=== PATIENT | male | born 1975 | race Caucasian/White ===

== ENCOUNTER 2023-05-24 22:30 | Inpatient (IN) | payer OTHER, SELFPAY ==
[2023-05-24 22:31] VITALS: BP 127/65; PULSE 93; RESP 18; TEMP 36.4; O2SAT 96; BMI 23.4
[2023-05-24 22:51] LABS: MANUAL DIFF FLAG NO
[2023-05-24 22:52] LABS: Basophils Percent Auto 0.6 % (0-2); Eosinophils Absolute Auto 0.3 X10*3/uL (0.0-0.4); Eosinophils Percent Auto 3.8 % (0-4); Hematocrit 43.9 % (42.0-52.0); Hemoglobin 15.1 g/dl (14.0-18.0); Imm Gran Abs Auto 0.03 X10*3/uL (0.00-0.03); Imm Gran Pct Auto 0.5 % (0.0-0.4); Lymphocytes Absolute Auto 2.2 X10*3/uL (1.2-4.9); Lymphocytes Percent Auto 33.3 % (20-40); Mean Corpuscular HGB Conc 34.4 g/dl (31.0-36.0); Mean Corpuscular Hemoglobin 32.5 pg (27.0-33.0); Mean Corpuscular Volume 94.4 fL (80.0-98.0); Mean Platelet Volume 8.8 fL (9.4-12.4); Monocytes Absolute Auto 0.2 X10*3/uL (0.1-1.2); Monocytes Percent Auto 3.6 % (2-11); Neutrophils Absolute Auto 3.9 x10*3/uL (2.0-8.3); Neutrophils Percent Auto 58.2 % (45-73); Platelet Count 302 X10*3/uL (160-400); Red Blood Count 4.65 X10*6/uL (4.60-5.80); Red Cell Distribution Width 12.6 % (11.0-16.0); White Blood Count 6.6 X10*3/uL (4.8-10.8)
[2023-05-24 23:06] LABS: Alanine Aminotransferase 36 U/L (0-40); Albumin Level 3.7 g/dL (3.5-5.0); Alkaline Phosphatase 65 U/L (39-117); Anion Gap 15 (12-20); Aspartate Amino Transferase 29 U/L (5-37); Bilirubin Total 0.2 mg/dL (0.0-1.0); Blood Urea Nitrogen 8 mg/dL (9-16); Calcium 8.2 mg/dL (8.4-10.2); Carbon Dioxide 21 mmol/L (22-29); Chloride 109 mmol/L (96-108); Creatinine Clr Calc Pharmacy 120.2; Estimated Glomerular Filt Rate > 60; Ethanol 195 mg/dL; Glucose Random 105 mg/dL (60-115); Potassium 4.2 mmol/L (3.3-5.1); Sodium 141 mmol/L (135-145); Total Protein 6.3 g/dL (6.5-8.0)
[2023-05-24 23:08] LABS: Acetaminophen LAB < 3 mcg/mL (<30); Salicylate < 5.0 mg/dL (15-30)
--- NOTE | 2023-05-24 23:13 | PC.NURSE ---
supplement to triage: client states no medical issues but then mentions later blood clot in leg/feet, states special ed classes and didnt finish high school no current psych dx. states current w meds from [facility], no reent psych admits relatively current w pcp, smokes cigarettes and desiresno nicotine replacementre ports recent use etoh 1 beer daily, reports hearing voices unclear on content, reports when feeling unsafe varied plans to hurt self but no clear intent.
--- NOTE | 2023-05-24 23:33 | ED.PSYCH ---
HPI - Psych General Chief Complaint: Psychiatric Symptoms Stated Complaint: crisis Time Seen by Provider: 05/24/23 22:53 Source: patient Mode of arrival: ambulatory Limitations: no limitations History of Present Illness HPI Narrative: Patient is a 47-year-old male who presents emergency department with a friend, by his account he has been ?staying this friend for a little while?. Initial triage presentation indicates unstable living situation. Patient reports increasing life stressors, dating back to 2013 including a divorce and separation from his children. He e has stated to multiple care provider since arriving to the ED various plans of suicide attempts including jumping off of a bridge or overdosing. He reports to me that he was going to consuming entire bottle meloxicam last night but his friend stopped him. Throughout today he has continued to be depressed and feeling suicidal, ultimately states his friend was able to convince him to come to the emergency department. He denies having any evaluation for feeling this way over the past many years he states ?I have been trying to stay under the radar?. In some recent past he states the research lab assistant was primary care doctor gave him a medication to help with anxiety and depression but he that it did not really help, he does admit to taking it very infrequently. He admits to alcohol consumption, states 1-3 beers daily at least, sometimes consumes 4-5 if ?he is partying?, upon further questioning he does admit to also taking shots of vodka and smoking marijuana but denies any other drug usage. He reports a history of tremors with withdrawal from alcohol, but subside with drinking again, denies any history of withdrawal seizure. He denies any homicidal ideations. Related Data Home Medications Medication Instructions Recorded Confirmed acetaminophen 500 mg tablet 500 mg PO Q6H PRN pain 05/24/23 05/24/23 clotrimazole-betamethasone 1 See Protocol topical BID 05/24/23 05/24/23 %-0.05 % topical cream Allergies Allergy/AdvReac Type Severity Reaction Status Date / Time No Known Allergies Allergy Verified 05/24/23 22:36 Review of Systems Review of Systems: Yes all other systems are reviewed and are negative PMFSH Past Medical History Attestation statement: The following information was validated with the patient. Source: old records reviewed Social History Social History Advance Directives: No Advance Directives Information Provided: No Physical Exam Vital Signs: Vital Signs: Last Vital Signs Temp 97.5 F 05/24/23 22:31 Pulse 93 05/24/23 22:31 Resp 18 05/24/23 22:31 BP 127/65 05/24/23 22:31 Pulse Ox 96 05/24/23 22:31 O2 Del Method Room Air 05/24/23 22:31 BMI result Body Mass Index 23.4 Appearance: Alert.?Oriented to person, place and time. No acute distress.?Normal affect. Eyes: Pupils equal, round and reactive to light.? ENT: Pharynx normal.?? Neck: Normal inspection.? Neck supple.?? CVS: Heart sounds normal. Normal heart rate and rhythm.? Pulses normal.?? Respiratory: No respiratory distress.? Lung sounds clear to auscultation bilaterally?? Abdomen: Soft and non-tender. Normoactive bowel sounds. No pulsatile mass.?? Skin: Skin warm and dry.? Normal skin color.? Normal skin turgor.?? Extremities: No lower extremity edema.? No calf ttp? Neuro: Moves all extremities spontaneously. Sensation intact bilaterally. CN II-XII intact. No focal neuro deficits. Ambulates with normal steady gait. Medical Decision Making Medical Decision Making [facility] Narrative: Patient is a 47 male presents emergency department for evaluation of suicidal ideations as per HPI. He denies any physical complaints, physical examination is benign. He does appear intoxicated however he is calm and cooperative, answering questions seemingly appropriately. Obtain serum labs for medical clearance CBC is without leukocytosis or anemia. CMP overall unremarkable. Normal liver function. Alcohol level 195, he will be placed in physician observation for clinical sobriety, and care team evaluation for safe disposition and determination as to whether inpatient psychiatric services are required. Plan to monitor [facility] Differential Diagnosis Differential Diagnoses: The differential diagnosis associated with the presentation includes (Polysubstance use disorder, suicidal ideation, depression, anxiety) Admission/Observation Consideration of admission/observation: Escalation of care including admission/observation considered (As noted above) Consult Healthcare Provider Management of the patient was discussed with: Behavioral Health Provider (Care team) Lab Data [facility] Lab Attestation statement: I reviewed the patient's lab results. (As noted above) 05/24/23 22:44 05/24/23 22:44 Labs: Lab Results 05/24/23 05/24/23 05/24/23 Range/Units 22:44 23:31 23:32 WBC 6.6 (4.8-10.8) X10*3/uL RBC 4.65 (4.60-5.80) X10*6/uL Hgb 15.1 (14.0-18.0) g/dl Hct 43.9 (42.0-52.0) % MCV 94.4 (80.0-98.0) fL MCH 32.5 (27.0-33.0) pg MCHC 34.4 (31.0-36.0) g/dl RDW 12.6 (11.0-16.0) % Plt Count 302 (160-400) X10*3/uL MPV 8.8 L (9.4-12.4) fL Immature Gran % (Auto) 0.5 H (0.0-0.4) % Neut % (Auto) 58.2 (45-73) % Lymph % (Auto) 33.3 (20-40) % [place] % (Auto) 3.6 (2-11) % Eos % (Auto) 3.8 (0-4) % Baso % (Auto) 0.6 (0-2) % Lymph # (Auto) 2.2 (1.2-4.9) X10*3/uL [place] # (Auto) 0.2 (0.1-1.2) X10*3/uL Eos # (Auto) 0.3 (0.0-0.4) X10*3/uL Baso # (Auto) 0.0 (0.0-0.2) X10*3/uL Abs Immat Gran (auto) 0.03 (0.00-0.03) X10*3/uL Absolute Neuts (auto) 3.9 (2.0-8.3) x10*3/uL Absolute Nucleated RBC 0.000 (0.0-0.012) X10*3/uL Nucleated RBC % (auto) 0.0 (0.0-0.2) /100WBC Sodium 141 (135-145) mmol/L Potassium 4.2 (3.3-5.1) mmol/L Chloride 109 H (96-108) mmol/L Carbon Dioxide 21 L (22-29) mmol/L Anion Gap 15 (12-20) BUN 8 L (9-16) mg/dL Creatinine 0.70 (0.5-1.4) mg/dL Estim Creat Clear Calc 120.2 Estimated GFR > 60 Random Glucose 105 (60-115) mg/dL Calcium 8.2 L (8.4-10.2) mg/dL Total Bilirubin 0.2 (0.0-1.0) mg/dL AST 29 (5-37) U/L ALT 36 (0-40) U/L Alkaline Phosphatase 65 (39-117) U/L Total Protein 6.3 L (6.5-8.0) g/dL Albumin 3.7 (3.5-5.0) g/dL Urine Color Yellow Urine Appearance Clear Urine pH 5.5 (5.0-9.0) Ur Specific [place] 1.015 (1.005-1.025) Urine Protein Negative (Neg-Trace) mg/dL Urine Glucose (UA) Negative (Negative) mg/dL Urine Ketones Trace (Negative) mg/dL Urine Blood Negative (Negative) Urine Nitrite Negative (Negative) Ur Leukocyte Esterase Negative (Negative) Salicylates < 5.0 L (15-30) mg/dL Urine Opiates Screen Not Detected (Not Detect) Urine Fentanyl Screen Not Detected (Not Detect) Acetaminophen < 3 (<30) mcg/mL Ur Barbiturates Screen Not Detected (Not Detect) Ur Phencyclidine Scrn Not Detected (Not Detect) Ur Amphetamines Screen Not Detected (Not Detect) U Benzodiazepines Scrn Not Detected (Not Detect) Urine Cocaine Screen Not Detected (Not Detect) U Marijuana (THC) Screen POSITIVE H (Not Detect) Ethyl Alcohol 195 mg/dL COVID-19 ([facility]) Negative (Negative) COVID-19 Clin Com See Note Social Determinants Patient?s care significantly limited by Social Determinants of Health including: Inadequate housing Discharge Plan Discharge Clinical Impression: Suicidal ideation Patient Disposition: Still a Patient Prescriptions: No Action acetaminophen 500 mg tablet 500 mg PO Q6H PRN (Reason: pain) clotrimazole-betamethasone 1-0.05 % cream See Protocol topical BID Protocol: Apply to: Apply to: affected area
[2023-05-24 23:41] LABS: COVID-19 Test Negative (Negative); IDNOW Serial# 6674DD1D
[2023-05-25 00:06] LABS: Appearance Urine Clear; Color Urine Yellow; Glucose Urine UA Negative (Negative); Leukocyte Esterase Urine Negative (Negative); Nitrite Urine Negative (Negative); PH 5.5 (5.0-9.0); Specific Gravity - Urine 1.015 (1.005-1.025); Urine Blood Negative (Negative); Urine Ketones Trace mg/dL (Negative); Urine Protein Negative (Neg-Trace)
[2023-05-25 01:09] LABS: Amphetamine Screen Urine Not Detected (Not Detect); Barbiturates, Urine Not Detected (Not Detect); Benzodiazepines Screen Urine Not Detected (Not Detect); Cannabinoid Screen Urine POSITIVE (Not Detect); Cocaine Screen Urine Not Detected (Not Detect); Fentanyl, urine Not Detected (Not Detect); Opiate Screen Urine Not Detected (Not Detect); Phencyclidine Screen Urine Not Detected (Not Detect)
[2023-05-25] MEDS: hydrOXYzine HCL 50 MG TABLET PO ×2 (03:49→19:40)
[2023-05-25 04:23] VITALS: BP 109/63; PULSE 79; RESP 16; TEMP 36.4; O2SAT 97
--- NOTE | 2023-05-25 05:00 | MHC.CARE ---
Pt is being held on a sec 12 due to SI with intent and a plan. He is currently an [facility] bed search.
[2023-05-25 08:58] VITALS: RESP 16
--- NOTE | 2023-05-25 08:59 | PC.NURSE ---
Report taken from Stephanie RN assumed care of pt at 0700. Pt resting eyes closed, easily awoken. Skin pwd respirations even unlabored. Breakfast tray provided. Offers no complaints. CIWA score 0. S12 IPBS continues. Safety maintained in pod.
--- NOTE | 2023-05-25 14:43 | PC.NURSE ---
Pt resting on bed, NAD, skin pwd respirations even unlabored. CIWA 0. S12 IPBS continues. Safety maintained in BH pod.
[2023-05-25 16:19] VITALS: BP 113/74; PULSE 74; RESP 18; TEMP 36.5; O2SAT 98
--- NOTE | 2023-05-25 18:25 | PC.NURSE ---
called luis e and carol for med rec status. on hold siva medina
--- NOTE | 2023-05-25 18:33 | PC.NURSE ---
provider patricio mixon notified ciwa 8 and that med rec complete- meloxicam filled 04/18 for 30 day supply and sertraline 50mg 04/08 30 d supply. all other meds at [facility] are not recent.
--- NOTE | 2023-05-25 19:56 | PC.NURSE ---
patient relazing in room had reported some anxiety to staff earlier t/w provided hydroxyzine per md order, will monitor for response, and continue ciwas for safety.
[2023-05-25] MEDS: Nicotine Polacrilex 2 MG GUM BUCCAL (23:04)
[2023-05-25] MEDS: Acetaminophen 325 MG TABLET 650 MG PO (23:04)
[2023-05-26 06:39] VITALS: BP 105/59; PULSE 59; RESP 17; TEMP 36.7; O2SAT 98
[2023-05-26 10:21] LABS: COVID-19 Test Negative (Negative); IDNOW Serial# 152EDE1D
[2023-05-26 10:57] VITALS: BP 103/69; PULSE 60; RESP 16; TEMP 36.6; O2SAT 97
--- NOTE | 2023-05-26 13:55 | PC.NURSE ---
nurse to nurse report given to M3
[2023-05-26 17:24] VITALS: BMI 23.7
--- NOTE | 2023-05-26 18:15 | PC.ADMIT ---
Nursing Admission Note: 47 year old male DX: Major depressive disorder, severe. Referred for treatment by CARE team. Signed conditional voluntary for admission. Brought into [facility] by friend Ronna who stopped him from ingesting entire bottle of medication. Patient easily engaged, calm and cooperative with admission process. A+O X 4. Reports mood is depressed, anxious, currently denies SI/HI. Reports Hx of panic attacks. Affect congruent. Denies AH/VH at this time. No overt psychosis or expressed delusions. Speech is rapid, not pressured. Hyperverbal, expansive. Thoughts are disorganized, racing thoughts. Tangential. Loose associations. Reports poor concentration, poor focus, easily distracted. Reports sleep disturbance, difficulty falling and maintaining sleep. Denies appetite disturbances at this time. Hx of SPED. Tox screen positive for marijuana and alcohol. BAL was 195 on presentation to crisis. Reports drinking 4 times a week, CIWA Q4H. Denies other drug use. COVID negative. Medical Hx includes R ankle surgery on 10/01 (w/ screws and plate). L ear poor hearing. R great toe and second toe, dry and cracked. NKA. Orientated to unit, placed on unit safety checks. See nursing assessment, crisis evaluation for complete details.
[2023-05-26 19:40] VITALS: BP 108/62; PULSE 64; RESP 18; TEMP 36.4; O2SAT 97
[2023-05-26] MEDS: Apixaban 5 MG TABLET PO (20:55)
[2023-05-26] MEDS: Betamethasone Dip Aug 0.05% Cr 15 GM TUBE 1 APPL TOPICAL (21:10)
[2023-05-26] MEDS: Clotrimazole 1 % Cream 15 GM TUBE 1 APPL TOPICAL (21:11)
[2023-05-26] MEDS: hydrOXYzine HCL 25 MG TABLET PO (21:24)
[2023-05-26] MEDS: traZODone HCL 50 MG TABLET PO (21:24)
[2023-05-27 08:30] LABS: Estimated Average Glucose 97 mg/dL; Hemoglobin A1C 125.1533 umol/L
[2023-05-27 08:38] LABS: Cholesterol 229 mg/dL (<200); HDL Cholesterol 80 mg/dL (>40); LDL Cholesterol Calculated 117 mg/dL (<100); Triglycerides 160 mg/dL (<150)
[2023-05-27 09:00] VITALS: BP 123/74; PULSE 79; RESP 18; TEMP 36.7; O2SAT 98
[2023-05-27 09:06] LABS: Folate 12.3 ng/mL (> or = 4.0); Vitamin B12 408 pg/mL (200-900)
[2023-05-27] MEDS: Apixaban 5 MG TABLET PO ×2 (09:46→22:47)
[2023-05-27] MEDS: Betamethasone Dip Aug 0.05% Cr 15 GM TUBE 1 APPL TOPICAL (09:49)
[2023-05-27] MEDS: Clotrimazole 1 % Cream 15 GM TUBE 1 APPL TOPICAL (09:49)
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
--- NOTE | 2023-05-27 12:50 | MHC.CLN ---
NUTRITION CONSULT FOR LESS THAN 10# WEIGHT LOSS IN UNKNOWN TIME. NURSING NOTES NO CURRENT ISSUES WITH APPETITE. NO ADDITIONAL NUTRITION INTERVENTIONS AT THIS TIME.
[2023-05-27 13:26] VITALS: BP 123/74; PULSE 79; O2SAT 98
[2023-05-27 19:55] VITALS: BP 123/70; PULSE 86; RESP 18; TEMP 36.9; O2SAT 98
[2023-05-27] MEDS: Acetaminophen 325 MG TABLET 650 MG PO (22:45)
[2023-05-27] MEDS: hydrOXYzine HCL 25 MG TABLET PO (22:46)
[2023-05-27] MEDS: Mirtazapine 15 MG TABLET PO (22:46)
[2023-05-28 07:45] VITALS: BP 142/73; PULSE 63; RESP 18; TEMP 36.2; O2SAT 99
--- NOTE | 2023-05-28 11:36 | HO.PSYCHPN ---
Subjective Subjective Date of Service: 05/28/23 Reason For Visit: Depression Subjective Notes: Conditional Voluntary Interim History: Pt reports that he has periods of feeling more frustrated and overwhelmed when he then ends up having suicidal thoughts. No particular triggers. He reports he has not been able to work for 3 years even prior to injury. He attributes his inability to work to attention problems. He also reports some times when he hears things. He also reports no one cares about me only this one friend who agree to have him over. He denies SI/HI. He reports drinking alcohol 3 times a week but states that's normal, that's what every one does. Review of Systems Review of Systems Yes all other systems are reviewed and are negative Mental Status Exam Mental Status Exam Narrative: adequately dressed and groomed. no PMA/PMR. cooperative. speech incr amount and rate, nml loudness. thoughts linear and logical. affect constricted, normo-intense, mod-labile (tearful). mood fair. denies SI/SIBI/HI/AVH. does report seeing some shadows last night and feeling paranoid there was someone standing over him while he was sleeping. Diagnostics Vital Signs (24Hr): Vital Signs - 24 hr 05/27/23 13:26 05/27/23 19:55 05/28/23 07:45 Temperature 98.4 F 97.1 F Pulse Rate 79 86 63 Respiratory Rate 18 18 Blood Pressure 123/74 123/70 142/73 H Pulse Oximetry 98 98 99 Oxygen Delivery Method Room Air Room Air BMI result Body Mass Index 23.7 Labs 05/24/23 22:44 05/24/23 22:44 Labs: Laboratory Results - last 48 hr 05/27/23 08:04 Estimat Average Glucose 97 Hemoglobin A1c % 5.0 Triglycerides 160 H Cholesterol 229 H LDL Cholesterol, Calc 117 H HDL Cholesterol 80 Vitamin B12 408 Folate 12.3 TSH 3.10 Free T4 0.90 Medications Medications Current Medications Acetaminophen (Acetaminophen 325 Mg Tablet) 650 mg PO Q6H PRN PRN Reason: Headache/Pain Mild Scale (1-3) Last Admin: 05/27/23 22:45 Dose: 650 mg Al Hydroxide/Mg Hydroxide (Magnesium Hydrox/Alum Hydrox 30 Ml Oral.Susp) 30 ml PO Q6H PRN PRN Reason: Heartburn/Nausea Apixaban (Apixaban 5 Mg Tablet) 5 mg PO BID SHARONA Last Admin: 05/28/23 10:01 Dose: Not Given Betamethasone Dipropion Augmented (Betamethasone Dip Aug 0.05% Cr 15 Gm Tube) 1 appl TOPICAL BID [facility] Last Admin: 05/28/23 10:01 Dose: Not Given Bupropion HCl (Bupropion Hcl Xl 150 Mg Tab.Er.24h) 150 mg PO DAILY [facility] Last Admin: 05/28/23 10:01 Dose: Not Given Clotrimazole (Clotrimazole 1 % Cream 15 Gm Tube) 1 appl TOPICAL BID [facility] Last Admin: 05/28/23 10:01 Dose: Not Given Hydroxyzine HCl (Hydroxyzine Hcl 25 Mg Tablet) 25 mg PO Q6H PRN PRN Reason: Anxiety Last Admin: 05/27/23 22:46 Dose: 25 mg Lorazepam (Lorazepam 1 Mg Tablet) 2 mg PO Q2H PRN PRN Reason: CIWA 12-15 Lorazepam (Lorazepam 1 Mg Tablet) 1 mg PO Q2H PRN PRN Reason: CIWA 8-11 Lorazepam (Lorazepam 1 Mg Tablet) 3 mg PO Q2H PRN PRN Reason: CIWA > 15; and call Magnesium Hydroxide (Milk Of Magnesia 30 Ml Oral.Susp) 30 ml PO DAILY PRN PRN Reason: Constipation Mirtazapine (Mirtazapine 15 Mg Tablet) 15 mg PO BEDTIME [facility] Last Admin: 05/27/23 22:46 Dose: 15 mg Mirtazapine (Mirtazapine 15 Mg Tablet) 15 mg PO BEDTIME PRN PRN Reason: insomnia Naproxen (Naproxen 250 Mg Tablet) 250 mg PO BID [facility] Nicotine Polacrilex (Nicotine Polacrilex 2 Mg Gum) 4 mg BUCCAL Q2H PRN PRN Reason: Nicotine Cravings Allergies Allergies Allergy/AdvReac Type Severity Reaction Status Date / Time No Known Allergies Allergy Verified 05/24/23 22:36 Assessment & Plan Assessment & Plan (1) Depression, unspecified: Status: Acute Code(s): F32.A - Depression, unspecified Plan 05/27: start wellbutrin XL 150 mg daily for depression, remeron 15 mg QHS MRx1 for insomnia. 05/28 continue tx. we discussed low dose risperidone Reason for continued inpatient stay Substantial Risk for: inability to function Time Spent With Patient Time: Total time managing care of this patient today ____ minutes.
[2023-05-28] MEDS: buPROPion HCl XL 150 MG TAB.ER.24H PO (11:42)
[2023-05-28] MEDS: Apixaban 5 MG TABLET PO ×2 (11:42→23:06)
[2023-05-28] MEDS: Throat Lozenge, Medicated LOZENGE 1 LOZENGE MUCOUS MEM (11:56)
--- NOTE | 2023-05-28 15:33 | MHC.RECOVRN ---
AUDIT-C Brief Intervention Pt had positive screen for unhealthy alcohol use on admission. Attempted to meet with pt to discuss alcohol use and offer resources, pt declined.
[2023-05-28] MEDS: risperiDONE 0.5 MG TABLET PO ×2 (16:00→23:08)
--- NOTE | 2023-05-28 18:46 | PC.NURSE ---
Experienced mild vomiting and diarrhea but declined medications
[2023-05-28 19:08] VITALS: BP 123/70; PULSE 94; RESP 16; TEMP 36.6; O2SAT 97
[2023-05-28] MEDS: NaPROXEN 500 MG TABLET PO (23:07)
[2023-05-28] MEDS: Gabapentin 300 MG CAPSULE PO (23:08)
[2023-05-28] MEDS: Mirtazapine 15 MG TABLET PO (23:08)
[2023-05-29 08:30] VITALS: BP 117/62; PULSE 86; RESP 18; TEMP 36; O2SAT 100
[2023-05-29] MEDS: NaPROXEN 500 MG TABLET PO ×2 (09:10→23:31)
[2023-05-29] MEDS: Apixaban 5 MG TABLET PO ×2 (09:10→23:32)
[2023-05-29] MEDS: buPROPion HCl XL 150 MG TAB.ER.24H PO (09:10)
[2023-05-29] MEDS: risperiDONE 0.5 MG TABLET PO ×2 (09:10→23:32)
--- NOTE | 2023-05-29 15:38 | HO.PSYCHPN ---
Subjective Subjective Date of Service: 05/29/23 Reason For Visit: Depression Subjective Notes: Conditional Voluntary Interim History: Pt reports feeling better. He ahd gabapentin at night which seemed to help with sleep. No SI/HI. he has been visible on the unit, social with select peers. No behavioral concerns. concrete thinking. Review of Systems Review of Systems Yes all other systems are reviewed and are negative Mental Status Exam Mental Status Exam Narrative: adequately dressed and groomed. no PMA/PMR. cooperative. speech incr amount and rate, nml loudness. thoughts linear and logical. affect constricted, normo-intense, mod-labile (tearful). mood fair. denies SI/SIBI/HI/AVH. does report seeing some shadows last night and feeling paranoid there was someone standing over him while he was sleeping. Diagnostics Vital Signs (24Hr): Vital Signs - 24 hr 05/28/23 19:08 05/29/23 08:30 Temperature 98 F 96.8 F Pulse Rate 94 86 Respiratory Rate 16 18 Blood Pressure 123/70 117/62 Pulse Oximetry 97 100 Oxygen Delivery Method Room Air Room Air BMI result Body Mass Index 23.7 Labs 05/24/23 22:44 05/24/23 22:44 Medications Medications Current Medications Acetaminophen (Acetaminophen 325 Mg Tablet) 650 mg PO Q6H PRN PRN Reason: Headache/Pain Mild Scale (1-3) Last Admin: 05/27/23 22:45 Dose: 650 mg Al Hydroxide/Mg Hydroxide (Magnesium Hydrox/Alum Hydrox 30 Ml Oral.Susp) 30 ml PO Q6H PRN PRN Reason: Heartburn/Nausea Apixaban (Apixaban 5 Mg Tablet) 5 mg PO BID [facility] Last Admin: 05/29/23 09:10 Dose: 5 mg Benzocaine (Throat Lozenge, Medicated Lozenge) 1 lozenge MUCOUS MEM Q2H PRN PRN Reason: Sore Throat Last Admin: 05/28/23 11:56 Dose: 1 lozenge Betamethasone Dipropion Augmented (Betamethasone Dip Aug 0.05% Cr 15 Gm Tube) 1 appl TOPICAL BID [facility] Last Admin: 05/29/23 09:13 Dose: Not Given Bupropion HCl (Bupropion Hcl Xl 150 Mg Tab.Er.24h) 150 mg PO DAILY [facility] Last Admin: 05/29/23 09:10 Dose: 150 mg Clotrimazole (Clotrimazole 1 % Cream 15 Gm Tube) 1 appl TOPICAL BID [facility] Last Admin: 05/29/23 09:13 Dose: Not Given Gabapentin (Gabapentin 300 Mg Capsule) 300 mg PO BEDTIME [facility] Last Admin: 05/28/23 23:08 Dose: 300 mg Hydroxyzine HCl (Hydroxyzine Hcl 25 Mg Tablet) 25 mg PO Q6H PRN PRN Reason: Anxiety Last Admin: 05/27/23 22:46 Dose: 25 mg Lorazepam (Lorazepam 1 Mg Tablet) 2 mg PO Q2H PRN PRN Reason: CIWA 12-15 Lorazepam (Lorazepam 1 Mg Tablet) 1 mg PO Q2H PRN PRN Reason: CIWA 8-11 Lorazepam (Lorazepam 1 Mg Tablet) 3 mg PO Q2H PRN PRN Reason: CIWA > 15; and call Magnesium Hydroxide (Milk Of Magnesia 30 Ml Oral.Susp) 30 ml PO DAILY PRN PRN Reason: Constipation Mirtazapine (Mirtazapine 15 Mg Tablet) 15 mg PO BEDTIME [facility] Last Admin: 05/28/23 23:08 Dose: 15 mg Mirtazapine (Mirtazapine 15 Mg Tablet) 15 mg PO BEDTIME PRN PRN Reason: insomnia Naproxen (Naproxen 500 Mg Tablet) 500 mg PO BID [facility] Last Admin: 05/29/23 09:10 Dose: 500 mg Nicotine Polacrilex (Nicotine Polacrilex 2 Mg Gum) 4 mg BUCCAL Q2H PRN PRN Reason: Nicotine Cravings Risperidone (Risperidone 0.5 Mg Tablet) 0.5 mg PO BID [facility] Last Admin: 05/29/23 09:10 Dose: 0.5 mg Allergies Allergies Allergy/AdvReac Type Severity Reaction Status Date / Time No Known Allergies Allergy Verified 05/24/23 22:36 Assessment & Plan Assessment & Plan (1) Depression, unspecified: Status: Acute Code(s): F32.A - Depression, unspecified Plan 05/27: start wellbutrin XL 150 mg daily for depression, remeron 15 mg QHS MRx1 for insomnia. 05/28 started low dose risperidone 0.5mg po BID, gabapentin 300mg po qhs 05/29 continue meds Reason for continued inpatient stay Substantial Risk for: inability to function Time Spent With Patient Time: Total time managing care of this patient today ____ minutes.
[2023-05-29 19:40] VITALS: BP 132/80; PULSE 91; RESP 18; TEMP 36.6; O2SAT 97
[2023-05-29] MEDS: Gabapentin 300 MG CAPSULE PO (23:31)
[2023-05-29] MEDS: Mirtazapine 15 MG TABLET PO (23:32)
--- NOTE | 2023-05-30 00:23 | PC.RT ---
Started pt Sleep Study @ 29; RA with sitter in room
[2023-05-30] MEDS: hydrOXYzine HCL 25 MG TABLET PO (01:14)
[2023-05-30] MEDS: Mirtazapine 15 MG TABLET PO ×2 (01:14→23:18)
--- NOTE | 2023-05-30 04:51 | PC.RT ---
Sleep study end @ 0500
[2023-05-30 07:55] VITALS: BP 88/52; PULSE 71; RESP 14; TEMP 36.3; O2SAT 96
[2023-05-30] MEDS: buPROPion HCl XL 150 MG TAB.ER.24H PO (10:21)
[2023-05-30] MEDS: NaPROXEN 500 MG TABLET PO ×2 (10:21→23:17)
[2023-05-30] MEDS: risperiDONE 0.5 MG TABLET PO ×2 (10:21→23:18)
[2023-05-30] MEDS: Apixaban 5 MG TABLET PO ×2 (10:21→23:17)
[2023-05-30] MEDS: Clotrimazole 1 % Cream 15 GM TUBE 1 APPL TOPICAL ×2 (10:22→23:16)
[2023-05-30] MEDS: Betamethasone Dip Aug 0.05% Cr 15 GM TUBE 1 APPL TOPICAL ×2 (10:22→23:17)
--- NOTE | 2023-05-30 20:32 | HO.PSYCHPN ---
Subjective Subjective Date of Service: 05/30/23 Reason For Visit: Depression Subjective Notes: Conditional Voluntary Interim History: Pt continues to report feeling better. He had gabapentin at night which seemed to help with sleep.Sleep study done. No SI/HI. he has been visible on the unit, social with select peers. No behavioral concerns. concrete thinking. Review of Systems Review of Systems Yes all other systems are reviewed and are negative Mental Status Exam Mental Status Exam Narrative: adequately dressed and groomed. no PMA/PMR. cooperative. speech incr amount and rate, nml loudness. thoughts linear and logical. affect constricted, normo-intense, mod-labile (tearful). mood fair. denies SI/SIBI/HI/AVH. does report seeing some shadows last night and feeling paranoid there was someone standing over him while he was sleeping. Diagnostics Vital Signs (24Hr): Vital Signs - 24 hr 05/30/23 07:55 Temperature 97.3 F Pulse Rate 71 Respiratory Rate 14 Blood Pressure 88/52 L Pulse Oximetry 96 Oxygen Delivery Method Room Air BMI result Body Mass Index 23.7 Labs 05/24/23 22:44 05/24/23 22:44 Medications Medications Current Medications Acetaminophen (Acetaminophen 325 Mg Tablet) 650 mg PO Q6H PRN PRN Reason: Headache/Pain Mild Scale (1-3) Last Admin: 05/27/23 22:45 Dose: 650 mg Al Hydroxide/Mg Hydroxide (Magnesium Hydrox/Alum Hydrox 30 Ml Oral.Susp) 30 ml PO Q6H PRN PRN Reason: Heartburn/Nausea Apixaban (Apixaban 5 Mg Tablet) 5 mg PO BID [facility] Last Admin: 05/30/23 10:21 Dose: 5 mg Benzocaine (Throat Lozenge, Medicated Lozenge) 1 lozenge MUCOUS MEM Q2H PRN PRN Reason: Sore Throat Last Admin: 05/28/23 11:56 Dose: 1 lozenge Betamethasone Dipropion Augmented (Betamethasone Dip Aug 0.05% Cr 15 Gm Tube) 1 appl TOPICAL BID [facility] Last Admin: 05/30/23 10:22 Dose: 1 appl Bupropion HCl (Bupropion Hcl Xl 150 Mg Tab.Er.24h) 150 mg PO DAILY [facility] Last Admin: 05/30/23 10:21 Dose: 150 mg Clotrimazole (Clotrimazole 1 % Cream 15 Gm Tube) 1 appl TOPICAL BID [facility] Last Admin: 05/30/23 10:22 Dose: 1 appl Gabapentin (Gabapentin 300 Mg Capsule) 300 mg PO BEDTIME [facility] Last Admin: 05/29/23 23:31 Dose: 300 mg Hydroxyzine HCl (Hydroxyzine Hcl 25 Mg Tablet) 25 mg PO Q6H PRN PRN Reason: Anxiety Last Admin: 05/30/23 01:14 Dose: 25 mg Magnesium Hydroxide (Milk Of Magnesia 30 Ml Oral.Susp) 30 ml PO DAILY PRN PRN Reason: Constipation Mirtazapine (Mirtazapine 15 Mg Tablet) 15 mg PO BEDTIME [facility] Last Admin: 05/29/23 23:32 Dose: 15 mg Mirtazapine (Mirtazapine 15 Mg Tablet) 15 mg PO BEDTIME PRN PRN Reason: insomnia Last Admin: 05/30/23 01:14 Dose: 15 mg Naproxen (Naproxen 500 Mg Tablet) 500 mg PO BID [facility] Last Admin: 05/30/23 10:21 Dose: 500 mg Nicotine Polacrilex (Nicotine Polacrilex 2 Mg Gum) 4 mg BUCCAL Q2H PRN PRN Reason: Nicotine Cravings Risperidone (Risperidone 0.5 Mg Tablet) 0.5 mg PO BID [facility] Last Admin: 05/30/23 10:21 Dose: 0.5 mg Allergies Allergies Allergy/AdvReac Type Severity Reaction Status Date / Time No Known Allergies Allergy Verified 05/24/23 22:36 Assessment & Plan Assessment & Plan (1) Depression, unspecified: Status: Acute Code(s): F32.A - Depression, unspecified Plan 05/27: start wellbutrin XL 150 mg daily for depression, remeron 15 mg QHS MRx1 for insomnia. 05/28 started low dose risperidone 0.5mg po BID, gabapentin 300mg po qhs 05/29 continue meds 05/30 continue tx. had sleep study. Reason for continued inpatient stay Substantial Risk for: inability to function Time Spent With Patient Time: Total time managing care of this patient today ____ minutes.
[2023-05-30 23:00] VITALS: BP 109/63; PULSE 78; RESP 16; TEMP 36.6; O2SAT 98
[2023-05-30] MEDS: Gabapentin 300 MG CAPSULE PO (23:19)
[2023-05-31 07:34] VITALS: BP 120/66; PULSE 66; RESP 14; TEMP 36.3; O2SAT 100
[2023-05-31] MEDS: risperiDONE 0.5 MG TABLET PO ×2 (08:35→23:00)
[2023-05-31] MEDS: buPROPion HCl XL 150 MG TAB.ER.24H PO ×2 (08:35→11:57)
[2023-05-31] MEDS: Apixaban 5 MG TABLET PO ×2 (08:35→23:00)
[2023-05-31] MEDS: NaPROXEN 500 MG TABLET PO ×2 (08:36→23:01)
[2023-05-31] MEDS: Betamethasone Dip Aug 0.05% Cr 15 GM TUBE 1 APPL TOPICAL ×2 (08:38→23:06)
[2023-05-31] MEDS: Clotrimazole 1 % Cream 15 GM TUBE 1 APPL TOPICAL ×2 (08:38→23:06)
[2023-05-31] MEDS: hydrOXYzine HCL 25 MG TABLET PO (12:27)
--- NOTE | 2023-05-31 14:16 | P.PNPSI_ITS ---
Subjective Subjective Date of Service: 05/31/23 Reason For Visit: Depression Interim History: calm, cooperative. reports he slept well last night. asking for stimulant. agrees to increase wellbutrin to 300 mg daily as of this morning. no other complaints or requests. per staff, brighter, visible. taking meds. dep 8, anx 5. worried about finances, kids. to bed at 0100, slept about 6 hours. Mental Status Exam Mental Status Exam Narrative: adequately dressed and groomed. no PMA/PMR. cooperative. speech incr amount and rate, nml loudness. thoughts linear and logical. affect flexible, normo- intense, non-labile. mood improved. no SI/SIBI/HI/AVH expressed. Diagnostics Vital Signs (24Hr): Vital Signs - 24 hr 05/30/23 23:00 05/31/23 07:34 Temperature 97.8 F 97.3 F Pulse Rate 78 66 Respiratory Rate 16 14 Blood Pressure 109/63 120/66 Pulse Oximetry 98 100 Oxygen Delivery Method Room Air Room Air BMI result Body Mass Index 23.7 Labs 05/24/23 22:44 05/24/23 22:44 Medications Medications Current Medications Acetaminophen (Acetaminophen 325 Mg Tablet) 650 mg PO Q6H PRN PRN Reason: Headache/Pain Mild Scale (1-3) Last Admin: 05/27/23 22:45 Dose: 650 mg Al Hydroxide/Mg Hydroxide (Magnesium Hydrox/Alum Hydrox 30 Ml Oral.Susp) 30 ml PO Q6H PRN PRN Reason: Heartburn/Nausea Apixaban (Apixaban 5 Mg Tablet) 5 mg PO BID [facility] Last Admin: 05/31/23 08:35 Dose: 5 mg Benzocaine (Throat Lozenge, Medicated Lozenge) 1 lozenge MUCOUS MEM Q2H PRN PRN Reason: Sore Throat Last Admin: 05/28/23 11:56 Dose: 1 lozenge Betamethasone Dipropion Augmented (Betamethasone Dip Aug 0.05% Cr 15 Gm Tube) 1 appl TOPICAL BID [facility] Last Admin: 05/31/23 08:38 Dose: 1 appl Bupropion HCl (Bupropion Hcl Xl 300 Mg Tab.Er.24h) 300 mg PO DAILY [facility] Clotrimazole (Clotrimazole 1 % Cream 15 Gm Tube) 1 appl TOPICAL BID [facility] Last Admin: 05/31/23 08:38 Dose: 1 appl Gabapentin (Gabapentin 300 Mg Capsule) 300 mg PO BEDTIME [facility] Last Admin: 05/30/23 23:19 Dose: 300 mg Hydroxyzine HCl (Hydroxyzine Hcl 25 Mg Tablet) 25 mg PO Q6H PRN PRN Reason: Anxiety Last Admin: 05/31/23 12:27 Dose: 25 mg Magnesium Hydroxide (Milk Of Magnesia 30 Ml Oral.Susp) 30 ml PO DAILY PRN PRN Reason: Constipation Mirtazapine (Mirtazapine 15 Mg Tablet) 15 mg PO BEDTIME [facility] Last Admin: 05/30/23 23:18 Dose: 15 mg Mirtazapine (Mirtazapine 15 Mg Tablet) 15 mg PO BEDTIME PRN PRN Reason: insomnia Last Admin: 05/30/23 01:14 Dose: 15 mg Naproxen (Naproxen 500 Mg Tablet) 500 mg PO BID [facility] Last Admin: 05/31/23 08:36 Dose: 500 mg Nicotine Polacrilex (Nicotine Polacrilex 2 Mg Gum) 4 mg BUCCAL Q2H PRN PRN Reason: Nicotine Cravings Risperidone (Risperidone 0.5 Mg Tablet) 0.5 mg PO BID [facility] Last Admin: 05/31/23 08:35 Dose: 0.5 mg Allergies Allergies Allergy/AdvReac Type Severity Reaction Status Date / Time No Known Allergies Allergy Verified 05/24/23 22:36 Assessment & Plan Assessment & Plan (1) Depression, unspecified: Status: Acute Code(s): F32.A - Depression, unspecified Plan 05/27: start wellbutrin XL 150 mg daily for depression, remeron 15 mg QHS MRx1 for insomnia. 05/28 started low dose risperidone 0.5mg po BID, gabapentin 300mg po qhs 05/29 continue meds 05/30 continue tx. had sleep study. 05/31: increase wellbutrin to 300 mg daily as of today. otherwise continue current mgmt. Reason for continued inpatient stay Substantial Risk for: inability to function and rapid decompensation Time Spent With Patient Time: Total time managing care of this patient today __25__ minutes.
[2023-05-31 21:00] VITALS: BP 132/73; PULSE 82; TEMP 36.6; O2SAT 99
[2023-05-31] MEDS: Gabapentin 300 MG CAPSULE PO (23:00)
[2023-05-31] MEDS: Mirtazapine 15 MG TABLET PO (23:02)
--- NOTE | 2023-06-01 00:49 | PC.RT ---
placed patient on sleep study, did not want to go to bed till 12:30-was not tired
[2023-06-01 07:54] VITALS: BP 137/81; PULSE 75; RESP 16; TEMP 36.2; O2SAT 100
[2023-06-01] MEDS: NaPROXEN 500 MG TABLET PO ×2 (08:26→23:09)
[2023-06-01] MEDS: Apixaban 5 MG TABLET PO ×2 (08:26→23:10)
[2023-06-01] MEDS: risperiDONE 0.5 MG TABLET PO ×2 (08:27→23:09)
[2023-06-01] MEDS: buPROPion HCl XL 300 MG TAB.ER.24H PO (08:27)
[2023-06-01] MEDS: Clotrimazole 1 % Cream 15 GM TUBE 1 APPL TOPICAL (08:46)
--- NOTE | 2023-06-01 14:36 | P.PNPSI_ITS ---
Subjective Subjective Date of Service: 06/01/23 Reason For Visit: Depression Interim History: calm, cooperative. no negative side effects from wellbutrin increase. nightmare last night, which he associates with having had the sleep study done. reports he is in a good mood and ready for DC on tuesday. per staff, eating meals, taking meds. pleasant, cooperative, friendly. sleep study went better last night. slept about 7 hours. Mental Status Exam Mental Status Exam Narrative: adequately dressed and groomed. no PMA/PMR. cooperative. speech incr amount and rate, nml loudness. thoughts linear and logical. affect flexible, normo- intense, non-labile. mood good. no SI/SIBI/HI/AVH. Diagnostics Vital Signs (24Hr): Vital Signs - 24 hr 05/31/23 21:00 06/01/23 07:54 Temperature 97.8 F 97.2 F Pulse Rate 82 75 Respiratory Rate 16 Blood Pressure 132/73 137/81 Pulse Oximetry 99 100 Oxygen Delivery Method Room Air Room Air BMI result Body Mass Index 23.7 Labs 05/24/23 22:44 05/24/23 22:44 Medications Medications Current Medications Acetaminophen (Acetaminophen 325 Mg Tablet) 650 mg PO Q6H PRN PRN Reason: Headache/Pain Mild Scale (1-3) Last Admin: 05/27/23 22:45 Dose: 650 mg Al Hydroxide/Mg Hydroxide (Magnesium Hydrox/Alum Hydrox 30 Ml Oral.Susp) 30 ml PO Q6H PRN PRN Reason: Heartburn/Nausea Apixaban (Apixaban 5 Mg Tablet) 5 mg PO BID [facility] Last Admin: 06/01/23 08:26 Dose: 5 mg Benzocaine (Throat Lozenge, Medicated Lozenge) 1 lozenge MUCOUS MEM Q2H PRN PRN Reason: Sore Throat Last Admin: 05/28/23 11:56 Dose: 1 lozenge Betamethasone Dipropion Augmented (Betamethasone Dip Aug 0.05% Cr 15 Gm Tube) 1 appl TOPICAL BID [facility] Last Admin: 06/01/23 08:45 Dose: Not Given Bupropion HCl (Bupropion Hcl Xl 300 Mg Tab.Er.24h) 300 mg PO DAILY [facility] Last Admin: 06/01/23 08:27 Dose: 300 mg Clotrimazole (Clotrimazole 1 % Cream 15 Gm Tube) 1 appl TOPICAL BID [facility] Last Admin: 06/01/23 08:46 Dose: 1 appl Gabapentin (Gabapentin 300 Mg Capsule) 300 mg PO BEDTIME [facility] Last Admin: 05/31/23 23:00 Dose: 300 mg Hydroxyzine HCl (Hydroxyzine Hcl 25 Mg Tablet) 25 mg PO Q6H PRN PRN Reason: Anxiety Last Admin: 05/31/23 12:27 Dose: 25 mg Magnesium Hydroxide (Milk Of Magnesia 30 Ml Oral.Susp) 30 ml PO DAILY PRN PRN Reason: Constipation Mirtazapine (Mirtazapine 15 Mg Tablet) 15 mg PO BEDTIME [facility] Last Admin: 05/31/23 23:02 Dose: 15 mg Mirtazapine (Mirtazapine 15 Mg Tablet) 15 mg PO BEDTIME PRN PRN Reason: insomnia Last Admin: 05/30/23 01:14 Dose: 15 mg Naproxen (Naproxen 500 Mg Tablet) 500 mg PO BID [facility] Last Admin: 06/01/23 08:26 Dose: 500 mg Nicotine Polacrilex (Nicotine Polacrilex 2 Mg Gum) 4 mg BUCCAL Q2H PRN PRN Reason: Nicotine Cravings Risperidone (Risperidone 0.5 Mg Tablet) 0.5 mg PO BID [facility] Last Admin: 06/01/23 08:27 Dose: 0.5 mg Allergies Allergies Allergy/AdvReac Type Severity Reaction Status Date / Time No Known Allergies Allergy Verified 05/24/23 22:36 Assessment & Plan Assessment & Plan (1) Depression, unspecified: Status: Acute Code(s): F32.A - Depression, unspecified Plan 05/27: start wellbutrin XL 150 mg daily for depression, remeron 15 mg QHS MRx1 for insomnia. 05/28 started low dose risperidone 0.5mg po BID, gabapentin 300mg po qhs 05/29 continue meds 05/30 continue tx. had sleep study. 05/31: increase wellbutrin to 300 mg daily as of today. otherwise continue current mgmt. 06/01: no side effects, mood improved, no safety concerns. continue current mgmt. plan for tuesday discharge. Reason for continued inpatient stay Substantial Risk for: inability to function and rapid decompensation Time Spent With Patient Time: Total time managing care of this patient today __25__ minutes.
[2023-06-01 19:50] VITALS: BP 116/76; PULSE 106; RESP 16; TEMP 36.7; O2SAT 99
[2023-06-01] MEDS: Gabapentin 300 MG CAPSULE PO (23:09)
[2023-06-01] MEDS: Mirtazapine 15 MG TABLET PO (23:10)
[2023-06-02 07:00] VITALS: BMI 24.0
[2023-06-02 08:10] VITALS: BP 106/61; PULSE 79; RESP 16; TEMP 36.3; O2SAT 98
[2023-06-02] MEDS: Clotrimazole 1 % Cream 15 GM TUBE 1 APPL TOPICAL ×2 (08:43→23:03)
[2023-06-02] MEDS: Apixaban 5 MG TABLET PO ×2 (08:43→23:05)
[2023-06-02] MEDS: NaPROXEN 500 MG TABLET PO ×2 (08:43→23:05)
[2023-06-02] MEDS: buPROPion HCl XL 300 MG TAB.ER.24H PO (08:43)
[2023-06-02] MEDS: risperiDONE 0.5 MG TABLET PO ×2 (08:43→23:05)
[2023-06-02] MEDS: hydrOXYzine HCL 25 MG TABLET PO (17:21)
[2023-06-02 20:10] VITALS: BP 136/78; PULSE 89; RESP 16; TEMP 36.6; O2SAT 98
--- NOTE | 2023-06-02 22:24 | HO.PSYCHPN ---
Subjective Subjective Date of Service: 06/02/23 Reason For Visit: Depression Subjective Notes: Conditional Voluntary Interim History: pt reports having some night phan last night, which he reports is fairly new, not sure if related to trazodone. He denies SI/HI. His affect appears much brighter, he is social, joking, no behavioral concerns. Review of Systems Review of Systems Yes all other systems are reviewed and are negative Mental Status Exam Mental Status Exam Narrative: adequately dressed and groomed. no PMA/PMR. cooperative. speech incr amount and rate, nml loudness. thoughts linear and logical. affect flexible, normo-intense, non-labile. mood good. no SI/SIBI/HI/AVH. Diagnostics Vital Signs (24Hr): Vital Signs - 24 hr 06/02/23 08:10 06/02/23 20:10 Temperature 97.3 F 97.8 F Pulse Rate 79 89 Respiratory Rate 16 16 Blood Pressure 106/61 136/78 Pulse Oximetry 98 98 Oxygen Delivery Method Room Air Room Air BMI result Body Mass Index 24.0 Labs 05/24/23 22:44 05/24/23 22:44 Medications Medications Current Medications Acetaminophen (Acetaminophen 325 Mg Tablet) 650 mg PO Q6H PRN PRN Reason: Headache/Pain Mild Scale (1-3) Last Admin: 05/27/23 22:45 Dose: 650 mg Al Hydroxide/Mg Hydroxide (Magnesium Hydrox/Alum Hydrox 30 Ml Oral.Susp) 30 ml PO Q6H PRN PRN Reason: Heartburn/Nausea Apixaban (Apixaban 5 Mg Tablet) 5 mg PO BID [facility] Last Admin: 06/02/23 08:43 Dose: 5 mg Benzocaine (Throat Lozenge, Medicated Lozenge) 1 lozenge MUCOUS MEM Q2H PRN PRN Reason: Sore Throat Last Admin: 05/28/23 11:56 Dose: 1 lozenge Betamethasone Dipropion Augmented (Betamethasone Dip Aug 0.05% Cr 15 Gm Tube) 1 appl TOPICAL BID [facility] Last Admin: 06/02/23 08:43 Dose: Not Given Bupropion HCl (Bupropion Hcl Xl 300 Mg Tab.Er.24h) 300 mg PO DAILY [facility] Last Admin: 06/02/23 08:43 Dose: 300 mg Clotrimazole (Clotrimazole 1 % Cream 15 Gm Tube) 1 appl TOPICAL BID [facility] Last Admin: 06/02/23 08:43 Dose: 1 appl Gabapentin (Gabapentin 300 Mg Capsule) 300 mg PO BEDTIME [facility] Last Admin: 06/01/23 23:09 Dose: 300 mg Hydroxyzine HCl (Hydroxyzine Hcl 25 Mg Tablet) 25 mg PO Q6H PRN PRN Reason: Anxiety Last Admin: 06/02/23 17:21 Dose: 25 mg Magnesium Hydroxide (Milk Of Magnesia 30 Ml Oral.Susp) 30 ml PO DAILY PRN PRN Reason: Constipation Mirtazapine (Mirtazapine 15 Mg Tablet) 15 mg PO BEDTIME [facility] Last Admin: 06/01/23 23:10 Dose: 15 mg Mirtazapine (Mirtazapine 15 Mg Tablet) 15 mg PO BEDTIME PRN PRN Reason: insomnia Last Admin: 05/30/23 01:14 Dose: 15 mg Naproxen (Naproxen 500 Mg Tablet) 500 mg PO BID [facility] Last Admin: 06/02/23 08:43 Dose: 500 mg Nicotine Polacrilex (Nicotine Polacrilex 2 Mg Gum) 4 mg BUCCAL Q2H PRN PRN Reason: Nicotine Cravings Risperidone (Risperidone 0.5 Mg Tablet) 0.5 mg PO BID [facility] Last Admin: 06/02/23 08:43 Dose: 0.5 mg Allergies Allergies Allergy/AdvReac Type Severity Reaction Status Date / Time No Known Allergies Allergy Verified 05/24/23 22:36 Assessment & Plan Assessment & Plan (1) Depression, unspecified: Status: Acute Code(s): F32.A - Depression, unspecified Plan 05/27: start wellbutrin XL 150 mg daily for depression, remeron 15 mg QHS MRx1 for insomnia. 05/28 started low dose risperidone 0.5mg po BID, gabapentin 300mg po qhs 05/29 continue meds 05/30 continue tx. had sleep study. 05/31: increase wellbutrin to 300 mg daily as of today. otherwise continue current mgmt. 06/01: no side effects, mood improved, no safety concerns. continue current mgmt. plan for tuesday discharge. Reason for continued inpatient stay Substantial Risk for: stable for discharge Time Spent With Patient Time: Total time managing care of this patient today ____ minutes.
[2023-06-02] MEDS: Betamethasone Dip Aug 0.05% Cr 15 GM TUBE 1 APPL TOPICAL (23:03)
[2023-06-02] MEDS: Mirtazapine 15 MG TABLET PO (23:04)
[2023-06-02] MEDS: Gabapentin 300 MG CAPSULE PO (23:05)
[2023-06-03 07:20] VITALS: BP 114/67; PULSE 86; RESP 16; TEMP 36.2; O2SAT 98
[2023-06-03] MEDS: risperiDONE 0.5 MG TABLET PO (09:22)
[2023-06-03] MEDS: NaPROXEN 500 MG TABLET PO (09:22)
[2023-06-03] MEDS: Apixaban 5 MG TABLET PO (09:22)
[2023-06-03] MEDS: buPROPion HCl XL 300 MG TAB.ER.24H PO (09:22)
[2023-06-03] MEDS: Betamethasone Dip Aug 0.05% Cr 15 GM TUBE 1 APPL TOPICAL (09:23)
[2023-06-03] MEDS: Clotrimazole 1 % Cream 15 GM TUBE 1 APPL TOPICAL (09:23)
--- NOTE | 2023-06-03 10:09 | PC.NURSE ---
Marcelino Robledo is discharging home from today. He denies ideation, plan or intent to harm self or others. He reports his mood is significantly improved and verbalizes gratitude for the help he received here. He verbalizes understanding of discharge plan including medications and appointments. He reports chronic right ankle pain unchanged since prior to admission.
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
== END 2023-06-03 11:58 | disposition home or self-care (01) | DRG 751 ==
LOC: HO.ED 05-25 00:14 → HO.PADLT16 05-26 14:26
PROVIDERS: Emergency Medicine; Admitting Provider Psychiatry & Neurology Psychiatry; Emergency Provider Emergency Medicine; PCP Student in an Organized Health Care Education/Training Program; Visit Provider Psychiatry & Neurology Psychiatry
DX: F33.1 Major depressive disorder, recurrent, moderate (principal); R45.851 Suicidal ideations; F17.210 Nicotine dependence, cigarettes, uncomplicated; Z71.6 Tobacco abuse counseling; Y90.6 Blood alcohol level of 120-199 mg/100 ml; Z20.822 Contact with and (suspected) exposure to COVID-19; Z79.01 Long term (current) use of anticoagulants; Z79.899 Other long term (current) drug therapy
CPT/HCPCS: 36415; 80053; 80061; 80143; 80179; 80307; 81003; 82607; 82746; 83036; 84439; 84443; 85025; 87635; 95806; 97161; 99285; S9485

== ENCOUNTER 2023-05-26 14:25 | Outpatient (BNV) | payer OTHER, SELFPAY | END 2023-05-31 19:00 | PROVIDERS: Admitting Provider Psychiatry & Neurology Psychiatry; Emergency Provider Emergency Medicine; PCP Student in an Organized Health Care Education/Training Program; Visit Provider Internal Medicine | DX: G47.33 Obstructive sleep apnea (adult) (pediatric) (principal) | CPT/HCPCS: 95806 ==

== ENCOUNTER → 2023-05-26 14:25 | Outpatient (BNV) | payer OTHER, SELFPAY | PROVIDERS: Admitting Provider Psychiatry & Neurology Psychiatry; Emergency Provider Emergency Medicine; PCP Student in an Organized Health Care Education/Training Program; Visit Provider Psychiatry & Neurology Psychiatry | DX: F33.3 Major depressive disorder, recurrent, severe with psychotic symptoms (principal) | CPT/HCPCS: 90792; 99231; 99232; 99238 ==